=== PATIENT | male | born 1970 | race Caucasian/White ===

== ENCOUNTER 2019-10-04 09:50 | Day surgery (SDC) | payer OTHER ==
[~2019-10-04] VITALS: Ht 175.3 cm; Wt 87.7 kg
[2019-10-04 10:37] LABS: HEMOGLOBIN 15.7 g/dL (13.5-17.5); MCH 31.2 pg (26.0-34.0); MCHC 33.4 g/dL (31.0-37.0); MCV 93.3 fL (80.0-100.0); RBC 5.04 10x6/uL (4.20-6.10); RDW 12.7 % (11.5-14.5); WBC 4.8 10x3/uL (4.8-10.8)
[2019-10-04 11:17] VITALS: Ht 175.3 cm; Wt 87.7 kg
--- NOTE | 2019-10-04 13:36 | NUR ---
1330 DR. OSVALDO BAILEY.
--- NOTE | 2019-10-05 14:37 | OP ---
PATIENT NAME: HILARIO OSEI MEDICAL RECORD: [id number] :68 LOCATION:[facility] ADMISSION DATE: SURGEON: ADRIAN RILEY DO DATE OF OPERATION: 10/04/2019 PROCEDURE: Colonoscopy. INDICATIONS FOR PROCEDURE: Rectal bleeding. SCOPE: Olympus video pediatric colonoscope. MEDICATIONS: Propofol 400 mg IV per anesthesia. WITHDRAWAL TIME: 9 minutes. ESTIMATED BLOOD LOSS: None. COMPLICATIONS: None. FINDINGS: Informed consent was given. The patient was made comfortable with the above medication. After reaching an adequate level of sedation by slow IV push, the patient was placed in the left side. A digital rectal examination was performed and was normal. The endoscope was then advanced under direct visualization through the rectum to the cecum, confirmed by the presence of the appendiceal orifice and ileocecal valve. The endoscope was slowly withdrawn. Mucosa was carefully examined. The prep quality was good. There were no polyps visualized on today's examination. There were a few scattered diverticula throughout the descending and sigmoid colon. Retroflexion was performed in the rectum with visualization of grade I internal hemorrhoids without bleeding. The endoscope was withdrawn from the patient. The patient tolerated the procedure well and there were no complications. IMPRESSION: 1. Mild diverticulosis. 2. Grade I internal hemorrhoids without bleeding. PLAN AND RECOMMENDATIONS: 1. Discharge home when recovery parameters are met. 2. High fiber diet. 3. Continue current medications. 4. Recall colonoscopy in 10 years for colorectal cancer screening purposes. TRANSINT:[id number] Voice Confirmation ID: [id number] DOCUMENT ID: [id number] ADRIAN RILEY DO at 1437 CC: [id number] DICTATION DATE: 10/04/19 1320 INTERACTIVE MULTIMEDIA DESIGNER: 10/04/19 2324 [facility] 10/04/19 [place] [id number]
== END 2019-10-04 14:10 | disposition home or self-care (01) ==
LOC: D.OPS 09:50
PROVIDERS: Anesthesiology; ATTEND Internal Medicine Gastroenterology
DX: K62.5 Hemorrhage of anus and rectum (principal); K57.30 Diverticulosis of large intestine without perforation or abscess without bleeding; K64.0 First degree hemorrhoids